=== PATIENT | female | born 1955 | race Caucasian/White ===

== ENCOUNTER 2017-09-23 11:55 | Emergency (ER) | payer OTHER ==
[2017-09-23] MEDS: SILVER SULFADIAZINE 1% 25 GM CR TOP (15:55)
[2017-09-23] MEDS: DIPHTH/TET/ACEL PERTUSS (ADULT) 0.5 ML VIAL IM* (16:44)
== END 2017-09-23 16:30 | disposition home or self-care (01) ==
LOC: FTE 11:55
DX: T21.25XA Burn of second degree of buttock, initial encounter (principal); J45.909 Unspecified asthma, uncomplicated; I10 Essential (primary) hypertension; E11.9 Type 2 diabetes mellitus without complications; F17.210 Nicotine dependence, cigarettes, uncomplicated; X11.0XXA Contact with hot water in bath or tub, initial encounter; Y92.9 Unspecified place or not applicable
CPT/HCPCS: 16020; 90471; 90715; 99283-25